=== PATIENT | male | born 1950 | race Caucasian/White ===

== ENCOUNTER 2019-07-03 11:49 | Inpatient (IN) ==
[2019-07-03] MEDS ORDERED: IOPAMIDOL 100 ML BOTTLE IV ONE (11:50)
[2019-07-03] MEDS ORDERED: 0.9 % SODIUM CHLORIDE 1,000 ML IV ONE (11:57)
[2019-07-03 12:14] LABS: POC Blood Urea Nitrogen 5 mg/dl (8-23); POC CO2 24 mmol/L (22-30); POC Calcium, Ionized 1.16 mmol/L (1.16-1.32); POC Chloride 103 mmol/L (96-108); POC Creatinine 0.5 mg/dl (0.7-1.2); POC Glucose, Random 124 mg/dL (70-105); POC Potassium 3.7 mmol/L (3.3-5.1); POC Sodium 138 mmol/L (133-145)
[2019-07-03 13:01] LABS: Basophils # (Auto) 0 K/mcL (0.0-0.3); Basophils % (Auto) 0.3 % (0.0-2.0); Eosinophils # (Auto) 0.1 K/mcL (0.0-0.7); Eosinophils % (Auto) 0.7 % (0.0-7.0); Granulocytes % (Auto) 71.6 % (38.0-78.0); Hematocrit 41.4 % (41.0-55.0); Hemoglobin 13.9 g/dL (13.5-16.5); Lymphocytes # (Auto) 1.5 K/mcL (1.5-4.8); Lymphocytes % (Auto) 21.6 % (15.5-49.0); Mean Cell Volume 91.7 fL (80.0-100.0); Mean Corpuscular HGB Conc 33.5 g/dL (31.0-36.0); Mean Platelet Volume 7.2 fL (7.4-10.4); Monocytes # (Auto) 0.4 K/mcL (0.1-0.9); Monocytes % (Auto) 5.8 % (1.0-12.0); Platelet Count 208 K/mcL (140-440); RBC 4.51 M/mcL (4.50-5.90); Red Cell Distribution Width 13.8 % (11.5-14.5)
[2019-07-03 13:24] LABS: ALT/SGPT 7 U/l (0-40); AST/SGOT 15 U/l (0-37); Albumin 4.4 gm/dL (3.2-5.2); Albumin/Globulin Ratio 1.8 (1.0-2.3); Alkaline Phosphatase 75 U/L (39-117); Bilirubin,Total 0.5 mg/dL (0.0-1.0); Blood Urea Nitrogen 6 mg/dl (8-23); Calcium 9.2 mg/dl (8.6-10.4); Carbon Dioxide 24 mmol/L (22-30); Chloride 103 mmol/L (96-108); Globulin 2.4 gm/dL (2.2-3.7); Glomerular Filtration Rate 103; Glucose 123 mg/dL (70-105)
--- NOTE | 2019-07-03 13:28 | XRay Report ---
CLINICAL INFORMATION: Abdominal pain. History of constipation TECHNIQUE: Supine and upright abdomen COMPARISON: Previous CT scans dated 06/24/2019 and 05/08/2015. Previous plain film examination dated 05/08/2015 FINDINGS: There is gas and fecal material within the colon. Fecal material is prominent, increased since previous plain film examination and probably increased since 06/24/2019. Findings are consistent with constipation. Fecal material in the distal sigmoid colon and rectum is prominent and there is probable mild pneumatosis. No evidence for mechanical small bowel obstruction. There is no pneumoperitoneum. No biliary or portal venous gas. There are multiple markers consistent with previous anterior abdominal wall surgical repair. IMPRESSION: 1. Findings consistent with constipation. Probable mild pneumatosis in the distal sigmoid colon 2. No evidence for mechanical small bowel obstruction Interpreted and Authenticated by: Refugio Tarango 07/03/19
[2019-07-03] MEDS ORDERED: hydrALAZINE 20 MG/ML VIAL IV ONE ×2 (13:32→18:38)
--- NOTE | 2019-07-03 13:33 | Cat Scan Report ---
CLINICAL INFORMATION: Altered mental status. Weakness. COMPARISON: None. TECHNIQUE: Axial noncontrast-enhanced images through the brain. Sagittally and coronally reformatted images. FINDINGS: No acute intracranial hemorrhage. There is no subdural hematoma. No subarachnoid hemorrhage. No intra-axial hematoma. There is ventriculomegaly. Lateral, third, fourth ventricles are prominent. Ventricles are enlarged to a degree greater than subarachnoid space enlargement. Etiology is not certain. Comparison with any prior examinations would be helpful. There is mild periventricular low attenuation which may be small vessel ischemic change but interstitial edema is possible No focal intra-axial attenuation abnormality. No localized mass effect. No midline shift. Brainstem and cerebellum are negative. No extra-axial come intracranial abnormality. Basilar cisterns are normal. No calvarial lesions. No fracture. No lytic lesion. Temporal bones are negative IMPRESSION: 1. Ventricular enlargement, comparison with any prior examinations available would be of benefit. 2. Mild periventricular white matter abnormality may represent small vessel ischemic change or interstitial edema 3. No focal abnormality. No intracranial hemorrhage The exam was performed using radiation dose optimization techniques including, but not limited to, automated exposure control, adjustment of the mA and/or kV according to patient size and use of iterative reconstruction technique. Interpreted and Authenticated by: Refugio Tarango 07/03/19
[2019-07-03 13:36] LABS: Appearance,Urine TURBID; Bacteria,Urine 0 /hpf (0); Bilirubin,Urine NEG (NEG); Color,Urine YELLOW; Culture Indicated,Urine NO; Glucose,Urine (UA) NEGATIVE (NEG); Ketones,Urine NEG (NEG); Leukocyte Esterase,Urine NEG /uL (NEG); Mucus,Urine MANY /hpf (0); Nitrate,Urine NEG (NEG); Protein,Urine NEG (NEG); Specific Gravity,Urine 1.015 (1.000-1.035); Urine Amorphous Crystals MANY /hpf (0); Urine Blood NEG mg/dL (<0.03); Urine RBC 0 /hpf (0-1); Urine Squamous Epithelial Cell 0 /hpf (0-4); Urine WBC 0 /hpf (0-4); Urobilinogen,Urine NEG (NEG)
[2019-07-03] MEDS ORDERED: ONDANSETRON 4 MG/2 ML VIAL IV ONE (13:40)
[2019-07-03] MEDS ORDERED: HYDROmorphone 2 MG/ML VIAL IV PRN (14:40)
[2019-07-03] MEDS ORDERED: PEG 3350/NA SULF,BICARB,CL/KCL 4,000 ML ORAL.SOL PO ONE (15:03)
--- NOTE | 2019-07-03 15:34 | Emergency Department Note ---
Nausea/Vomiting/Diarrhea HPI - General Chief complaint: Nausea/Vomiting/Diarrhea Stated complaint: Weakness/ Diarrhea Time Seen by Provider: 07/03/19 11:57 Source: patient Mode of arrival: ambulatory Limitations: no limitations - History of Present Illness HPI Narrative: 69-year-old male presents with vague nonspecific complaints other than constipation and abdominal pain. He has been seen here multiple times recently including less than 48 hours ago where he had a CT of the abdomen and pelvis that was negative other than possible constipation. States he had 3 weeks of diarrhea now the last 5 days he cannot have a bowel movement. Feels distended and like he needs to go and is miserable. No dysuria or frequency. He is confused at times. Daughter states his confusion seems to be getting worse. She does not know what is causing this. No fever or chills. He does have some nausea today but no vomiting. Last episode of diarrhea was at least 5 days ago and he is not exactly sure. - Related Data Home Medications Medication Instructions Recorded Confirmed ALPRAZolam [Xanax] 1 mg PO Q6HP PRN 05/08/15 06/24/19 Dicyclomine 20 mg PO QID 05/08/15 06/24/19 HYDROcodone/APAP 10/325MG [[place] 1 tab PO Q4H PRN 05/08/15 06/24/19 10/325Mg] Oxybutynin Chloride [Ditropan Xl] 15 mg PO HS 09/09/16 06/24/19 Previous Rx's Medication Instructions Recorded Ondansetron [Zofran ODT] 4 mg SL Q4-6HP PRN #10 tab 06/24/19 Allergies Allergy/AdvReac Type Severity Reaction Status Date / Time codeine [CODEINE] Allergy Unknown BOWEL Verified 06/23/19 18:24 PROBLEMS NSAIDS (Non-Steroidal Allergy Unknown BOWEL Verified 06/23/19 18:24 Anti-Inflamma PROBLEMS [NSAIDS (NON-STEROIDAL ANTI-INFLAMMA] Review of Systems All systems ED: reviewed and negative except as stated. Past Medical History - Past Medical History [facility] Narrative: Medical History Constipation (Acute) Sprain of right shoulder (Acute) Sprain of right elbow (Acute) Right wrist sprain (Acute) Medical history: Reports: cancer (Prostate), other (neck pain, back pain, IBS) Surgical history ED: Reports: orthopedic, other (neck, back) - Social History smoking status: Current every day smoker Alcohol use: Reports: Unknown Drug use: Reports: none Physical Exam Limitations: no limitations General appearance: alert (Alert and appropriate times but other times is confused.), other (Thin and fragile appearing) Head: atraumatic, normocephalic, normal inspection Eye: Present: normal appearance. Absent: conjunctival injection ENT: Present: normal exam, normal oropharynx, mucous membranes moist, TM's normal bilaterally, normal external ear exam Neck: Present: normal inspection, trachea midline Chest: Present: symmetric chest wall rise Respiratory: Present: normal lung sounds bilaterally. Absent: respiratory distress, rales/crackles, accessory muscle use Cardiovascular: Present: regular rate, normal heart sounds Abdominal: Present: distention (Mild distention), tenderness (Diffuse tenderness), normal bowel sounds. Absent: guarding, rebound Extremities: Present: normal inspection Neurological: Present: alert Psychiatric: Present: normal affect, normal mood Skin: Present: warm, dry, intact, normal color. Absent: rash, hives, cyanosis, diaphoresis Course Course Narrative: Patient has had issues with urinary retention since he. He was cathed once for greater than 500 mils. Over the course of the last couple hours he has over 500 and his bladder again on bladder scan and is unable to void. Paredes cath placed. @1899 I did speak with hospitalist Dr. Chase about possible admission. He would like us to get CT of abd/pelvis. Pt still unable to have BM and continued issues with urinary retention as well, as well has HTN. @ 2019 I did speak with Dr Quinteros regarding CT findings. He will consult on pt in morning but said most likely due to constipation @ 2041 Dr. Chase agrees to accept pt Vital Signs Temperature 98.1 F 07/03/19 11:51 Pulse Rate 81 07/03/19 11:51 Respiratory Rate 16 07/03/19 11:51 Blood Pressure 167/95 07/03/19 11:51 Pulse Oximetry (%) 96 07/03/19 11:51 Temperature 99.7 F H 07/03/19 15:21 Pulse Rate 91 H 07/03/19 19:46 Respiratory Rate 14 07/03/19 18:44 Blood Pressure 208/93 07/03/19 19:46 Pulse Oximetry (%) 100 07/03/19 19:46 Nausea/Vomiting/Diarrhea - Lab Data Lab results reviewed: Yes I reviewed the patient's lab results. Result diagrams: 07/03/19 12:05 07/03/19 12:05 Lab Results 07/03/19 07/03/19 07/03/19 Range/Units 12:05 12:05 12:05 WBC 7.0 (4.5-11.0) K/mcL RBC 4.51 (4.50-5.90) M/mcL Hgb 13.9 (13.5-16.5) g/dL Hct 41.4 (41.0-55.0) % POC Hct 40.0 L (41.0-55.0) % MCV 91.7 (80.0-100.0) fL MCH 30.7 (26.0-34.0) pg MCHC 33.5 (31.0-36.0) g/dL RDW 13.8 (11.5-14.5) % Plt Count 208 (140-440) K/mcL MPV 7.2 L (7.4-10.4) fL Gran % 71.6 (38.0-78.0) % Lymph % (Auto) 21.6 (15.5-49.0) % [place] % (Auto) 5.8 (1.0-12.0) % Eos % (Auto) 0.7 (0.0-7.0) % Baso % (Auto) 0.3 (0.0-2.0) % Gran # 5.0 (1.8-8.0) K/mcL Lymph # (Auto) 1.5 (1.5-4.8) K/mcL [place] # (Auto) 0.4 (0.1-0.9) K/mcL Eos # (Auto) 0.1 (0.0-0.7) K/mcL Baso # (Auto) 0 (0.0-0.3) K/mcL VBG Lactic Acid (0.5-2.0) mmol/L POC Sodium 138 (133-145) mmol/L Sodium 139 (133-145) mmol/L POC Potassium 3.7 (3.3-5.1) mmol/L Potassium 3.7 (3.3-5.1) mmol/L POC Chloride 103 (96-108) mmol/L Chloride 103 (96-108) mmol/L Carbon Dioxide 24 (22-30) mmol/L POC Total CO2 24 (22-30) mmol/L Anion Gap 12.0 (8-16) POC BUN 5 L (8-23) mg/dl BUN 6 L (8-23) mg/dl Creatinine 0.6 L (0.7-1.2) mg/dl POC Creatinine 0.5 L (0.7-1.2) mg/dl GFR Calculation 103 Glucose 123 H (70-105) mg/dL POC Glucose 124 H (70-105) mg/dL Calcium 9.2 (8.6-10.4) mg/dl POC WB Ioniz Calcium 1.16 (1.16-1.32) mmol/L Total Bilirubin 0.5 (0.0-1.0) mg/dL AST 15 (0-37) U/l ALT 7 (0-40) U/l Alkaline Phosphatase 75 (39-117) U/L Troponin T < 0.01 (0-0.03) ng/ml Total Protein 6.8 (5.9-8.4) gm/dL Albumin 4.4 (3.2-5.2) gm/dL Globulin 2.4 (2.2-3.7) gm/dL Albumin/Globulin Ratio 1.8 (1.0-2.3) Urine Color Urine Appearance Urine pH (5.0-9.0) Ur Specific [place] (1.000-1.035) Urine Protein (NEG) mg/dL Urine Glucose (UA) (NEG) mg/dL Urine Ketones (NEG) mg/dL Urine Occult Blood (<0.03) mg/dL Urine Nitrate (NEG) Urine Bilirubin (NEG) mg/dL Urine Urobilinogen (NEG) mg/dL Ur Leukocyte Esterase (NEG) /uL Urine RBC (0-1) /hpf Urine WBC (0-4) /hpf Ur Squamous Epith Cells (0-4) /hpf Amorphous Crystals (0) /hpf Urine Bacteria (0) /hpf Urine Mucus (0) /hpf Ur Culture Indicated? 07/03/19 07/03/19 Range/Units 12:45 12:55 WBC (4.5-11.0) K/mcL RBC (4.50-5.90) M/mcL Hgb (13.5-16.5) g/dL Hct (41.0-55.0) % POC Hct (41.0-55.0) % MCV (80.0-100.0) fL MCH (26.0-34.0) pg MCHC (31.0-36.0) g/dL RDW (11.5-14.5) % Plt Count (140-440) K/mcL MPV (7.4-10.4) fL Gran % (38.0-78.0) % Lymph % (Auto) (15.5-49.0) % [place] % (Auto) (1.0-12.0) % Eos % (Auto) (0.0-7.0) % Baso % (Auto) (0.0-2.0) % Gran # (1.8-8.0) K/mcL Lymph # (Auto) (1.5-4.8) K/mcL [place] # (Auto) (0.1-0.9) K/mcL Eos # (Auto) (0.0-0.7) K/mcL Baso # (Auto) (0.0-0.3) K/mcL VBG Lactic Acid 1.1 (0.5-2.0) mmol/L POC Sodium (133-145) mmol/L Sodium (133-145) mmol/L POC Potassium (3.3-5.1) mmol/L Potassium (3.3-5.1) mmol/L POC Chloride (96-108) mmol/L Chloride (96-108) mmol/L Carbon Dioxide (22-30) mmol/L POC Total CO2 (22-30) mmol/L Anion Gap (8-16) POC BUN (8-23) mg/dl BUN (8-23) mg/dl Creatinine (0.7-1.2) mg/dl POC Creatinine (0.7-1.2) mg/dl GFR Calculation Glucose (70-105) mg/dL POC Glucose (70-105) mg/dL Calcium (8.6-10.4) mg/dl POC WB Ioniz Calcium (1.16-1.32) mmol/L Total Bilirubin (0.0-1.0) mg/dL AST (0-37) U/l ALT (0-40) U/l Alkaline Phosphatase (39-117) U/L Troponin T (0-0.03) ng/ml Total Protein (5.9-8.4) gm/dL Albumin (3.2-5.2) gm/dL Globulin (2.2-3.7) gm/dL Albumin/Globulin Ratio (1.0-2.3) Urine Color Yellow Urine Appearance Turbid Urine pH 8.0 (5.0-9.0) Ur Specific [place] 1.015 (1.000-1.035) Urine Protein Neg (NEG) mg/dL Urine Glucose (UA) Negative (NEG) mg/dL Urine Ketones Neg (NEG) mg/dL Urine Occult Blood Neg (<0.03) mg/dL Urine Nitrate Neg (NEG) Urine Bilirubin Neg (NEG) mg/dL Urine Urobilinogen Neg (NEG) mg/dL Ur Leukocyte Esterase Neg (NEG) /uL Urine RBC 0 (0-1) /hpf Urine WBC 0 (0-4) /hpf Ur Squamous Epith Cells 0 (0-4) /hpf Amorphous Crystals Many A (0) /hpf Urine Bacteria 0 (0) /hpf Urine Mucus Many A (0) /hpf Ur Culture Indicated? No - Radiology Data Radiology results reviewed: Yes I reviewed the patient's radiology results. Disposition Pt seen by [facility]/PA only: Yes Clinical Impression: Abdominal pain, Constipation, Urinary retention, Hypertension, Confusion Disposition: Home, Self-Care Condition: Fair Referrals: Annalisa Larsen MD [Primary Care Provider] -
--- NOTE | 2019-07-03 20:18 | Cat Scan Report ---
CLINICAL INFORMATION: Abdominal pain. Diarrhea COMPARISON: Plain film examination dated 07/03/2019. Previous CT scan dated 06/24/2019 TECHNIQUE: Axial images were obtained through the abdomen and pelvis. Sagittally and coronally reformatted images. 80 mL Isovue 370 injected intravenously. Oral contrast material was not administered FINDINGS: Lung bases:Negative. No focal pulmonary parenchymal infiltrate or mass. There is no pleural fluid. No pericardial fluid Liver:Negative. No focal intrahepatic abnormality. Liver contour is smooth. Gallbladder, billary:No calcified gallstones. No dilated bile ducts Spleen:Negative. No splenomegaly. Normal enhancement of the splenic and portal veins Pancreas:Negative. No pancreatic mass. No peripancreatic abnormality Adrenal glands:Negative Kidneys, ureters, bladder:Negative kidneys. No solid or cystic mass. There is no hydronephrosis. There is no hydroureter. No renal or ureteral calculi. No bladder stone. Urinary bladder is distended Gastrointestinal:Large amount of fecal material throughout the colon consistent with constipation. There is prominent fecal material in the distal sigmoid colon and rectum which may indicate impaction. There is rectal wall thickening and mild pneumatosis in the rectum and distal sigmoid colon. This may represent stercoral colitis. There is no evidence for appendicitis. No mechanical small bowel obstruction. There is somewhat prominent fluid throughout the small bowel. No significant small bowel dilatation. Stomach and duodenum are negative Vascular:Calcification of the abdominal aorta. No abdominal aortic aneurysm. Lymphatic:No retroperitoneal or mesenteric adenopathy Mesentery, peritoneum:No free intraperitoneal fluid. No intra-abdominal abscess Reproductive:Prostate is not enlarged Musculoskeletal:Severe degenerative disc disease at L4-5. No lumbar compression fracture. There is mild left convex lumbar scoliosis Sacrum and pelvis are negative. Hips are negative. IMPRESSION: 1. Findings consistent with constipation. Probable distal impaction. There is mild rectal wall thickening and pneumatosis. This may be secondary to stercoral colitis 2. Mild bladder distention. No bladder calculus or detectable mass The exam was performed using radiation dose optimization techniques including, but not limited to, automated exposure control, adjustment of the mA and/or kV according to patient size and use of iterative reconstruction technique. Interpreted and Authenticated by: Refugio Tarango 07/03/19
--- NOTE | 2019-07-03 21:01 | Internal Med History&Physical ---
Medical - H&P: [facility] Patient information: Note initiated : 07/03/19 at 8:59 pm Service Date, if different from initiated Date: [] Patient: Philip Whitney 69 y/o M admitted on for Weakness/ Diarrhea. Chief Complaint: [] History of present illness: Mr. Whitney is a 69 year old M 69-year-old male presents the ED with constipation for the last 5 days. Prior to that he was dealing with diarrhea for 3 weeks after he see the flu shot. Presents with generalized abdominal pain and distension. Has nausea, no vomiting. No chest pain or shortness of breath. He takes narcotics for chronic neck pain. She is a poor historian and occasionally slow to answer questions. Per notes daughter felt he was confused at times and getting worse for the past few weeks. He lives by himself. Pressure was quite elevated in the ED as well and he was noted to have urinary retention and required a Paredes. He was given enemas and oral medications to treat his constipation but nothing has succeeded. CT abdomen pelvis was consistent with constipation probable distal impaction mild rectal wall thickening with pneumatosis possibly related to stercoral oral colitis. This was reviewed with the surgeon. Review of Systems: Pertinent positives as above. Denies headache/fever/chills/nausea/chest pain/cough/dyspnea/diarrhea. Many 10 point review of system reviewed negative Medical - H&P: PMH Medical history: Medical History Constipation (Acute) Sprain of right shoulder (Acute) Sprain of right elbow (Acute) Right wrist sprain (Acute) Anxiety Chronic pain Past surgical history: Cervical spine's fusion Prostate surgery Family history: Did not know his mother's father's medical history Social history: Smokes 1 pack/day Denies alcohol use Uses marijuana occasionally Lives by himself has dementia and is in a halfway Medical - H&P: Meds Home Medications Medication Instructions Recorded Confirmed Type ALPRAZolam [Xanax] 1 mg PO Q6HP PRN 05/08/15 06/24/19 History Dicyclomine 20 mg PO QID 05/08/15 06/24/19 History HYDROcodone/APAP 10/325MG [[place] 1 tab PO Q4H PRN 05/08/15 06/24/19 History 10/325Mg] Oxybutynin Chloride [Ditropan Xl] 15 mg PO HS 09/09/16 06/24/19 History Ondansetron [Zofran ODT] 4 mg SL Q4-6HP PRN #10 tab 06/24/19 Rx Allergies Allergy/AdvReac Type Severity Reaction Status Date / Time codeine [CODEINE] Allergy Unknown BOWEL Verified 06/23/19 18:24 PROBLEMS NSAIDS (Non-Steroidal Allergy Unknown BOWEL Verified 06/23/19 18:24 Anti-Inflamma PROBLEMS [NSAIDS (NON-STEROIDAL ANTI-INFLAMMA] Medical - H&P: Exam - Constitutional Vitals: Temp Pulse Resp BP Pulse Ox 99.7 F H 90 14 170/83 95 07/03/19 15:21 07/03/19 20:32 07/03/19 18:44 07/03/19 20:32 07/03/19 20:32 Exam: General: Alert, Awake, No acute Distress Eyes/N/T: EOMI, PEERL, DMM Head/Neck: neck supple, normocephalic atraumatic CV: Mildly tacky but regular, No murmurs, normal s1/s2 Pulm: Clear b/l, no wheezing/rhonchi/rales Abd: distended, TTP generalized, decrease BS x4 Ext: no clubbing/cyanosis/edema Neuro: A&Ox4 although slow to answer some questions , moves all extremities, CN 2-12 grossly intact, symmetrical strength b/l upper/lower, sensations intact b/l upper/lower Skin: warm/dry Medical - H&P: Reslt - Labs CBC & Chem 7: 07/03/19 12:05 07/03/19 12:05 Labs: Short CBC 07/03/19 Range/Units 12:05 WBC 7.0 (4.5-11.0) K/mcL Hgb 13.9 (13.5-16.5) g/dL Hct 41.4 (41.0-55.0) % Plt Count 208 (140-440) K/mcL BMP 07/03/19 12:05 Sodium 139 Potassium 3.7 Chloride 103 Carbon Dioxide 24 BUN 6 L Creatinine 0.6 L Glucose 123 H Calcium 9.2 Cardiac Enzymes 07/03/19 Range/Units 12:05 Troponin T < 0.01 (0-0.03) ng/ml Liver Function 07/03/19 Range/Units 12:05 Total Bilirubin 0.5 (0.0-1.0) mg/dL AST 15 (0-37) U/l ALT 7 (0-40) U/l Alkaline Phosphatase 75 (39-117) U/L Albumin 4.4 (3.2-5.2) gm/dL Urine 07/03/19 Range/Units 12:55 Urine Color Yellow Urine Appearance Turbid Urine pH 8.0 (5.0-9.0) Ur Specific [place] 1.015 (1.000-1.035) Urine Protein Neg (NEG) mg/dL Urine Glucose (UA) Negative (NEG) mg/dL - Impressions Severe constipation distal impaction some rectal wall thickening with mild pneumatosis. Medical - H&P: A/P - Narrative A/P Narrative: A: *HTN urgency: *Urinary retention: suspect will resolve with resolution of constipation *Constipation w/fecal impaction: on opioids -CT showing with mild rectal wall thickening and pneumatosis, case discussed and reviewed by surgery -suspect will resolve with resolution of constipation *Chronic pain with opioid dependence: *Anxiety: *Confusion per family: A&Ox4 on admit, but slow to answer some questions. likely 2/2 pain/above P: -attempt digital disimpaction, prn enema, then PO meds -IV fluids -Clear liquid diet -monitor BP, prn IV meds -Paredes catheter placement for now -records from dr. Larsen office - -Smoking cessation counseling -ppx: lovenox DNR
[2019-07-03] MEDS ORDERED: POTASSIUM CHLORIDE 20 MEQ TABLET PO PRN ×2 (23:19)
[2019-07-03] MEDS ORDERED: LORazepam 2 MG/ML VIAL IV PRN (23:19)
[2019-07-03] MEDS ORDERED: hydrALAZINE 20 MG/ML VIAL IV PRN (23:19)
[2019-07-03] MEDS ORDERED: IPRATROPIUM/ALBUTEROL 3 ML AMPUL.NEB NEB PRN (23:19)
[2019-07-03] MEDS ORDERED: MAGNESIUM SULFATE 2 GM/50 ML BAG IV PRN (23:19)
[2019-07-03] MEDS ORDERED: POTASSIUM CHLORIDE 40 MEQ in DEXTROSE 5% IN WATER 500 ML IV PRN (23:19)
[2019-07-03] MEDS ORDERED: PROMETHAZINE 25 MG TABLET PO PRN (23:19)
[2019-07-03] MEDS ORDERED: ACETAMINOPHEN 325 MG TABLET PO PRN (23:19)
[2019-07-03] MEDS ORDERED: MINERAL OIL 1 DOSE ENEMA PR ONE (23:19)
[2019-07-03] MEDS ORDERED: LABETALOL 5 MG/ML ML IV PRN (23:19)
[2019-07-04] MEDS: 0.9 % SODIUM CHLORIDE 10 ML SYRINGE IV SCH ×4 (00:03→21:01)
[2019-07-04] MEDS: 0.9 % SODIUM CHLORIDE 1,000 ML IV SCH ×3 (00:04→15:53)
[2019-07-04] MEDS ORDERED: LABETALOL 5 MG/ML ML IV ONE ×2 (02:21→02:42)
[2019-07-04 06:52] LABS: ALT/SGPT 5 U/l (0-40); AST/SGOT 14 U/l (0-37); Albumin 3.8 gm/dL (3.2-5.2); Albumin/Globulin Ratio 1.5 (1.0-2.3); Alkaline Phosphatase 69 U/L (39-117); Bilirubin,Direct < 0.2 mg/dL (0.0-0.3); Bilirubin,Total 0.5 mg/dL (0.0-1.0); Blood Urea Nitrogen 7 mg/dl (8-23); Calcium 9.4 mg/dl (8.6-10.4); Carbon Dioxide 23 mmol/L (22-30); Chloride 103 mmol/L (96-108); Globulin 2.5 gm/dL (2.2-3.7); Glomerular Filtration Rate 103; Glucose 99 mg/dL (70-105); Lactate Dehydrogenase 189 U/L (94-250); Phosphorous 3.7 mg/dL (2.7-4.5); Triglycerides 66 mg/dl (<150); Uric Acid 2.5 mg/dL (2.5-8.0)
--- NOTE | 2019-07-04 07:15 | Internal Med Progress Note ---
Medical - PN: Subj Patient information: Note initiated : 07/04/19 at 7:12 am Service Date, if different from initiated Date: [] Patient: Philip Whitney 69 y/o M admitted on 07/03/19 for Weakness/ Diarrhea. Chief Complaint: [] Interval history: Mr. Whitney is a 69 year old M 69-year-old male presents the ED with constipation for the last 5 days. Prior to that he was dealing with diarrhea for 3 weeks after he see the flu shot. Presents with generalized abdominal pain and distension. Has nausea, no vomiting. No chest pain or shortness of breath. He takes narcotics for chronic neck pain. She is a poor historian and occasionally slow to answer questions. Per notes daughter felt he was confused at times and getting worse for the past few weeks. He lives by himself. Pressure was quite elevated in the ED as well and he was noted to have urinary retention and required a Paredes. He was given enemas and oral medications to treat his constipation but nothing has succeeded. CT abdomen pelvis was consistent with constipation probable distal impaction mild rectal wall thickening with pneumatosis possibly related to stercoral oral colitis. This was reviewed with the surgeon. 07/04 was able to get some sleep. Refused enemas last night but did receive a enema this morning with good response. Feels less distended abdominal pain is better. Getting another enema as of speak. Will likely start oral route laxatives. Trying to obtain office notes to determine if there is any history of suspected dementia. Review of Systems: denies headache/fever/chills/nausea/vomiting/chest pain/cough/dyspnea/diarrhea. Otherwise see above. - Constitutional Vitals: Vital Signs Temp Pulse Resp BP Pulse Ox 99.3 F H 88 18 149/70 97 07/04/19 06:40 07/04/19 06:40 07/04/19 06:40 07/04/19 06:40 07/04/19 06:40 Period Temp Pulse Resp BP Sys/Junior Pulse Ox Last 24 Hr 98.1 F-99.7 F 62-102 0-23 132-213/70-141 95-100 Intake and Output 07/03/19 07/04/19 07/04/19 21:59 05:59 13:59 Intake Total 0 Output Total 1450 450 Balance -1450 -450 Weight 51.256 kg Intake & Output: Intake & Output 07/03/19 07/04/19 07/04/19 21:59 05:59 13:59 Intake Total 0 Output Total 1450 450 Balance -1450 -450 Weight 51.256 kg Intake: Oral 0 Output: Urine Catheter Amount 800 450 Void Amount 650 Other: Urine Appearance Clear Clear Straight Clear Clear Urine Color Bright Yellow Straw Straight Pale Pale Urine Odor Normal Straight Normal Stool Size Small Stool Color Brown Stool Consistency Soft # Bowel Movements 2 Exam: General: Alert, Awake, No acute Distress Eyes/N/T: EOMI, Head/Neck: neck supple, CV: RRR, No murmurs, Pulm: Clear b/l, no wheezing/rhonchi/rales Abd: less distended/firm, mild TTP generalized, decrease BS x4 but present Ext: no clubbing/cyanosis/edema Neuro: A&Ox4 although slow to answer some questions , Skin: warm/dry Medical - PN: Obj Da - Labs CBC & Chem 7: 07/03/19 12:05 07/04/19 04:35 Labs: Abnormal Lab Results 07/04/19 07/03/19 07/03/19 04:35 12:55 12:05 POC Hct 40.0 L MPV POC BUN 5 L BUN 7 L 6 L Creatinine 0.6 L 0.6 L POC Creatinine 0.5 L Glucose 123 H POC Glucose 124 H Amorphous Crystals Many A Urine Mucus Many A 07/03/19 12:05 POC Hct MPV 7.2 L POC BUN BUN Creatinine POC Creatinine Glucose POC Glucose Amorphous Crystals Urine Mucus Meds: Medications Acetaminophen (Tylenol) 650 mg PO Q6HP PRN PRN Reason: PAIN/FEVER > 101 Albuterol/Ipratropium (Duoneb) 3 ml NEB Q4HP PRN PRN Reason: Shortness Of Breath Enoxaparin Sodium (Lovenox) 40 mg SQ DAILY [facility] Hydralazine HCl (Apresoline) 0 mg IV Q2HP PRN PRN Reason: Hypertension Potassium Chloride 40 meq/ (Dextrose) 520 mls @ 130 mls/hr IV UD PRN PRN Reason: Potassium < 3 Magnesium Sulfate (Magnesium Sulfate) 2 gm in 50 mls @ 50 mls/hr IV UD PRN PRN Reason: Magnesium </= 1.6 Sodium Chloride (Sodium Chloride 0.9%) 1,000 mls @ 75 mls/hr IV .[id number] [facility] Stop: 07/05/19 01:58 Last Admin: 07/04/19 00:04 Dose: 75 mls/hr Documented by: Labetalol HCl (Trandate) 0 mg IV Q2HP PRN PRN Reason: Hypertension Lorazepam (Ativan) 0.5 - 1 mg IV Q4-6HP PRN PRN Reason: ANXIETY/SEDATION Ondansetron HCl (Zofran) 4 mg IV Q4HP PRN PRN Reason: Nausea And Vomiting Potassium Chloride (Kdur) 40 meq PO UD PRN PRN Reason: Potssium is 3-3.5 Potassium Chloride (Kdur) 40 meq PO UD PRN PRN Reason: Potassium < 3 Promethazine HCl (Phenergan) 0 mg PO Q6HP PRN PRN Reason: Nausea And Vomiting Sodium Chloride (Saline Flush) 10 ml IV Q8 [facility] Last Admin: 07/04/19 00:03 Dose: 10 ml Documented by: Medical - PN: A/P - Time Spent With Patient Total time spent is greater than 50% in coordination of care (as documented) at patient's floor/unit and/or counseling patient: - Narrative A/P Narrative: A: *HTN urgency: 2/2 below. Improved -suspect will resolve with resolution of constipation *Urinary retention: suspect will resolve with resolution of constipation *Constipation w/fecal impaction: on opioids -CT showing with mild rectal wall thickening and pneumatosis, case discussed and reviewed by surgery -refused enema's last nigth *Chronic pain with opioid dependence: *Anxiety: *Confusion per family: A&Ox4 on admit, but slow to answer some questions. likely 2/2 pain/above P: -Enema, then PO meds -IV fluids -Clear liquid diet -monitor BP, prn IV meds -Paredes catheter placement, likely d/c later today -records from dr. Larsen office - -Smoking cessation counseling -ppx: lovenox DNR Medical - PN: Qual - VTE Deep Vein Thrombosis/Pulmonary Embolism Present on Admission: No
--- NOTE | 2019-07-04 08:12 | XRay Report ---
CLINICAL INFORMATION: FOLLOW -UP OF SMALL BOWEL OBSTRUCTION COMPARISON: 07/03/2019 FINDINGS: Moderate stool present in the right, distal sigmoid colon and rectum. The stomach, colon small bowel are normal, however. There is no evidence of jacki bowel obstruction. No free air, soft tissue mass or organomegaly. No pathologic calcification. IMPRESSION: Moderate stool in the right/ distal sigmoid colon and rectum. No acute disease. No evidence of pneumatosis on today's study Interpreted and Authenticated by: Refugio Dahl 07/04/19
[2019-07-04] MEDS: ONDANSETRON 4 MG/2 ML VIAL IV PRN ×2 (08:21→17:40)
[2019-07-04] MEDS: ENOXAPARIN 40 MG/0.4 ML SYRINGE SQ SCH (10:41)
[2019-07-04] MEDS ORDERED: PROCHLORPERAZINE 10 MG TABLET PO PRN (10:52)
[2019-07-04] MEDS ORDERED: LACTULOSE 20 GM/30 ML ORAL.SOL PO PRN (10:56)
[2019-07-04] MEDS ORDERED: POLYETHYLENE GLYCOL 3350 17 GM PACKET PO PRN (10:56)
[2019-07-04] MEDS ORDERED: SENNOSIDES 1 TABLET PO PRN (10:56)
[2019-07-04] MEDS ORDERED: PEG 3350/NA SULF,BICARB,CL/KCL 4,000 ML ORAL.SOL PO ONE (10:57)
[2019-07-04] MEDS: HYDROcodone/APAP 10/325MG TABLET PO SCH ×3 (11:30→21:11)
[2019-07-04] MEDS: METHOCARBAMOL 500 MG TABLET PO PRN (11:31)
[2019-07-04] MEDS: POLYETHYLENE GLYCOL 3350 17 GM PACKET PO SCH ×4 (12:01→23:49)
[2019-07-04] MEDS: METHYLNALTREXONE BROMIDE 12 MG/0.6 ML SYRINGE SQ SCH (12:45)
[2019-07-04] MEDS: ALPRAZolam 0.5 MG TABLET PO PRN (17:34)
[2019-07-04] MEDS ORDERED: ALPRAZolam 0.5 MG TABLET PO PRN (21:00)
[2019-07-04] MEDS ORDERED: GABAPENTIN 300 MG CAPSULE PO SCH (21:00)
[2019-07-04] MEDS ORDERED: DULoxetine 30 MG CAPSULE PO SCH (21:00)
[2019-07-05] MEDS: 0.9 % SODIUM CHLORIDE 10 ML SYRINGE IV SCH (05:14)
--- NOTE | 2019-07-05 07:09 | Internal Med Progress Note ---
Medical - PN: Subj Patient information: Note initiated : 07/05/19 at 7:06 am Service Date, if different from initiated Date: [] Patient: Philip Whitney 69 y/o M admitted on 07/03/19 for Weakness/ Diarrhea. Chief Complaint: [] Interval history: Mr. Whitney is a 69 year old M 69-year-old male presents the ED with constipation for the last 5 days. Prior to that he was dealing with diarrhea for 3 weeks after he see the flu shot. Presents with generalized abdominal pain and distension. Has nausea, no vomiting. No chest pain or shortness of breath. He takes narcotics for chronic neck pain. She is a poor historian and occasionally slow to answer questions. Per notes daughter felt he was confused at times and getting worse for the past few weeks. He lives by himself. Pressure was quite elevated in the ED as well and he was noted to have urinary retention and required a Paredes. He was given enemas and oral medications to treat his constipation but nothing has succeeded. CT abdomen pelvis was consistent with constipation probable distal impaction mild rectal wall thickening with pneumatosis possibly related to stercoral oral colitis. This was reviewed with the surgeon. 07/04 was able to get some sleep. Refused enemas last night but did receive a enema this morning with good response. Feels less distended abdominal pain is better. Getting another enema as of speak. Will likely start oral route laxatives. Trying to obtain office notes to determine if there is any history of suspected dementia. Review of Systems: denies headache/fever/chills/nausea/vomiting/chest pain/cough/dyspnea/diarrhea. Otherwise see above. - Constitutional Vitals: Vital Signs Temp Pulse Resp BP Pulse Ox 99.0 F 55 L 18 164/90 98 07/05/19 06:00 07/05/19 06:00 07/05/19 06:00 07/05/19 06:00 07/05/19 06:00 Period Temp Pulse Resp BP Sys/Junior Pulse Ox Last 24 Hr 97.8 F-99.8 F 55-89 14-18 125-164/67-90 95-99 Intake and Output 07/04/19 07/05/19 07/05/19 21:59 05:59 13:59 Intake Total 1600 Output Total 250 175 Balance -250 1425 Weight 53.569 kg Intake & Output: Intake & Output 07/04/19 07/05/19 07/05/19 21:59 05:59 13:59 Intake Total 1600 Output Total 250 175 Balance -250 1425 Weight 53.569 kg Intake: IV 1000 Sodium Chloride 0.9% 1,000 ml @ 1000 75 mls/hr IV .[id number] [facility] Rx#: [id number] Oral 600 Output: Urine Catheter Amount 250 175 Other: Urine Appearance Clear Straight Sediment Urine Color Light [place] Tea Colored Straight Light [place] Stool Size Large Stool Color Brown Stool Consistency Liquid # Bowel Movements 1 Exam: General: Alert, Awake, No acute Distress Eyes/N/T: EOMI, Head/Neck: neck supple, CV: RRR, No murmurs, Pulm: Clear b/l, no wheezing/rhonchi/rales Abd: less distended/firm, mild TTP generalized, decrease BS x4 but present Ext: no clubbing/cyanosis/edema Neuro: A&Ox4 although slow to answer some questions , Skin: warm/dry Medical - PN: Obj Da - Labs CBC & Chem 7: 07/03/19 12:05 07/04/19 04:35 Labs: Abnormal Lab Results 07/04/19 07/03/19 07/03/19 04:35 12:55 12:05 POC Hct 40.0 L MPV POC BUN 5 L BUN 7 L 6 L Creatinine 0.6 L 0.6 L POC Creatinine 0.5 L Glucose 123 H POC Glucose 124 H Amorphous Crystals Many A Urine Mucus Many A 07/03/19 12:05 POC Hct MPV 7.2 L POC BUN BUN Creatinine POC Creatinine Glucose POC Glucose Amorphous Crystals Urine Mucus Meds: Medications Acetaminophen (Tylenol) 650 mg PO Q6HP PRN PRN Reason: PAIN/FEVER > 101 Hydrocodone Bitart/Acetaminophen (Argillite 10/325mg) 1.5 tab PO QID [facility]; Protocol Last Admin: 07/04/19 21:11 Dose: Not Given Documented by: Albuterol/Ipratropium (Duoneb) 3 ml NEB Q4HP PRN PRN Reason: Shortness Of Breath Alprazolam (Xanax) 1 mg PO TIDP PRN PRN Reason: Anxiety Last Admin: 07/04/19 17:34 Dose: 1 mg Documented by: Alprazolam (Xanax) 2 mg PO HSP PRN PRN Reason: Anxiety Last Admin: 07/04/19 21:07 Dose: 2 mg Documented by: Duloxetine HCl (Cymbalta) 30 mg PO DAILY [facility] Duloxetine HCl (Cymbalta) 60 mg PO [facility] Last Admin: 07/04/19 21:11 Dose: Not Given Documented by: Enoxaparin Sodium (Lovenox) 40 mg SQ DAILY [facility] Last Admin: 07/04/19 10:41 Dose: 40 mg Documented by: Gabapentin (Neurontin) 600 mg PO [facility] Last Admin: 07/04/19 21:11 Dose: Not Given Documented by: Hydralazine HCl (Apresoline) 0 mg IV Q2HP PRN PRN Reason: Hypertension Potassium Chloride 40 meq/ (Dextrose) 520 mls @ 130 mls/hr IV UD PRN PRN Reason: Potassium < 3 Magnesium Sulfate (Magnesium Sulfate) 2 gm in 50 mls @ 50 mls/hr IV UD PRN PRN Reason: Magnesium </= 1.6 Labetalol HCl (Trandate) 0 mg IV Q2HP PRN PRN Reason: Hypertension Lactulose (Cephulac) 10 gm PO DAILYP PRN PRN Reason: Constipation Lorazepam (Ativan) 0.5 - 1 mg IV Q4-6HP PRN PRN Reason: ANXIETY/SEDATION Last Admin: 07/04/19 08:20 Dose: 0.5 mg Documented by: Methocarbamol (Robaxin) 500 mg PO TIDP PRN PRN Reason: Muscle Spasm Last Admin: 07/04/19 11:31 Dose: 500 mg Documented by: Methylnaltrexone [place] (Relistor) 12 mg SQ DAILY [facility] Stop: 07/06/19 09:01 Last Admin: 07/04/19 12:45 Dose: 12 mg Documented by: Ondansetron HCl (Zofran) 4 mg IV Q4HP PRN PRN Reason: Nausea And Vomiting Last Admin: 07/04/19 17:40 Dose: 4 mg Documented by: Oxybutynin Chloride (Ditropan Xl) 15 mg PO DAILY [facility] Polyethylene Glycol (Miralax) 17 gm PO DAILYP PRN PRN Reason: Constipation Potassium Chloride (Kdur) 40 meq PO UD PRN PRN Reason: Potssium is 3-3.5 Potassium Chloride (Kdur) 40 meq PO UD PRN PRN Reason: Potassium < 3 Prochlorperazine (Compazine) 10 mg PO Q8HP PRN PRN Reason: Nausea And Vomiting Promethazine HCl (Phenergan) 0 mg PO Q6HP PRN PRN Reason: Nausea And Vomiting Senna (Senokot) 1 tab PO DAILYP PRN PRN Reason: Constipation Sodium Chloride (Saline Flush) 10 ml IV Q8 [facility] Last Admin: 07/05/19 05:14 Dose: Not Given Documented by: Medical - PN: A/P - Time Spent With Patient Total time spent is greater than 50% in coordination of care (as documented) at patient's floor/unit and/or counseling patient: - Narrative A/P Narrative: A: *HTN urgency: 2/2 below. Improved -suspect will resolve with resolution of constipation *Urinary retention: suspect will resolve with resolution of constipation *Constipation w/fecal impaction: on opioids -CT showing with mild rectal wall thickening and pneumatosis, case discussed and reviewed by surgery -refused enema's last night *h/o IBS: *Chronic neck pain w/opioid dependence: *Anxiety/Depression: *Confusion per family: A&Ox4 on admit, likely 2/2 pain/constipation/above -CT brain with ventricular enlargement, small vessel ischemic dz *Hearing Impairment: P: -bowel regimen -full liquid diet -monitor BP, prn IV meds -d/c Paredes -will decreased duloxetine back to 60mg daily, did d/w PCP -Smoking cessation counseling -ppx: lovenox DNR Medical - PN: Qual - VTE Deep Vein Thrombosis/Pulmonary Embolism Present on Admission: No
[2019-07-05] MEDS: HYDROcodone/APAP 10/325MG TABLET PO SCH ×2 (07:21→12:42)
--- NOTE | 2019-07-05 08:24 | XRay Report ---
CLINICAL INFORMATION: FOLLOW -UP OF SMALL BOWEL OBSTRUCTION COMPARISON: 07/04/2019 FINDINGS: The gas pattern is normal. There is no free air, soft tissue mass, organomegaly or pathologic calcification. IMPRESSION: Normal Interpreted and Authenticated by: Refugio Dahl 07/05/19
[2019-07-05] MEDS ORDERED: DULoxetine 30 MG CAPSULE PO SCH (09:00)
[2019-07-05] MEDS ORDERED: OXYBUTYNIN CHLORIDE 5 MG TAB.XL.24H PO SCH (09:00)
--- NOTE | 2019-07-05 10:05 | Discharge Summary ---
Medical - DS: Prov Patient information: Note initiated : 07/05/19 at 10:03 am Service Date, if different from initiated Date: [] Patient: Philip Whitney 69 y/o M admitted on 07/03/19 for Weakness/ Diarrhea. Chief Complaint: [] Date of admission: 07/03/19 23:12 Discharge date: 07/05/19 Primary care physician: Annalisa Larsen Consults: 07/03/19 20:59 Consult to Physician [CONS] Stat Comment: Consulting Provider: Shmuel Chase Reason For Exam: Physician to Consult 07/03/19 23:19 Consult to Physician [CONS] Routine Comment: fecal impaction Consulting Provider: Shanell Quinteros Reason For Exam: Physician to Consult Medical - DS: Meds - Discharge Medications Prescriptions: Docusate Sodium [Colace] 100 mg PO BID #60 cap Transmission Status: Pending to [facility] DULoxetine [Cymbalta] 60 mg PO DAILY #1 capsule Polyethylene Glycol 3350 [Miralax] 17 gm PO DAILYP PRN #30 packet PRN Reason: Constipation Transmission Status: Pending to [facility] Sennosides [Senokot] 1 tab PO DAILYP PRN #30 tab PRN Reason: Constipation Transmission Status: Pending to [facility] Active and Home Medications: Home Medications HYDROcodone/APAP 10/325MG [Robbins 10/325Mg] 1.5 tab PO QID 05/08/15 [History Confirmed 07/04/19 Last Taken Unknown] Ondansetron [Zofran ODT] 4 mg SL Q4-6HP PRN #10 tab 06/24/19 [Rx Confirmed 07/04/19 Last Taken Unknown] ALPRAZolam [Xanax] 1 mg PO TIDP PRN 07/04/19 [History Confirmed 07/04/19 Last Taken Unknown] ALPRAZolam [Xanax] 2 mg PO HSP PRN 07/04/19 [History Confirmed 07/04/19 Last Taken Unknown] DULoxetine [Cymbalta] 30 mg PO DAILY 07/04/19 [History Confirmed 07/04/19 Last Taken Unknown] DULoxetine [Cymbalta] 60 mg PO HS 07/04/19 [History Confirmed 07/04/19 Last Taken Unknown] Gabapentin [Neurontin] 600 mg PO HS 07/04/19 [History Confirmed 07/04/19 Last Taken Unknown] Methocarbamol [Robaxin] 500 mg PO TIDP PRN 07/04/19 [History Confirmed 07/04/19 Last Taken Unknown] Oxybutynin Chloride [Oxybutynin Chloride ER] 15 mg PO DAILY 07/04/19 [History Confirmed 07/04/19 Last Taken Unknown] Prochlorperazine [Compazine] 10 mg PO Q8HP PRN 07/04/19 [History Confirmed 07/04/19 Last Taken Unknown] clonazePAM [KlonoPIN] 0.5 mg PO Q8HP PRN 07/04/19 [History Confirmed 07/04/19 Last Taken Unknown] Home Medications HYDROcodone/APAP 10/325MG [Robbins 10-325Mg] 1.5 tab PO QID 05/08/15 [History Confirmed 07/04/19 Last Taken Unknown] Ondansetron [Zofran ODT] 4 mg SL Q4-6HP PRN #10 tab 06/24/19 [Rx Confirmed 07/04/19 Last Taken Unknown] ALPRAZolam [Xanax] 1 mg PO TIDP PRN 07/04/19 [History Confirmed 07/04/19 Last Taken Unknown] ALPRAZolam [Xanax] 2 mg PO HSP PRN 07/04/19 [History Confirmed 07/04/19 Last Taken Unknown] Gabapentin [Neurontin] 600 mg PO HS 07/04/19 [History Confirmed 07/04/19 Last Taken Unknown] Methocarbamol [Robaxin] 500 mg PO TIDP PRN 07/04/19 [History Confirmed 07/04/19 Last Taken Unknown] Oxybutynin Chloride [Oxybutynin Chloride ER] 15 mg PO DAILY 07/04/19 [History Confirmed 07/04/19 Last Taken Unknown] Prochlorperazine [Compazine] 10 mg PO Q8HP PRN 07/04/19 [History Confirmed 07/04/19 Last Taken Unknown] clonazePAM [KlonoPIN] 0.5 mg PO Q8HP PRN 07/04/19 [History Confirmed 07/04/19 Last Taken Unknown] DULoxetine [Cymbalta] 60 mg PO DAILY #1 capsule 07/05/19 [Rx Last Taken Unknown] Docusate Sodium [Colace] 100 mg PO BID #60 cap 07/05/19 [Rx Last Taken Unknown] Polyethylene Glycol 3350 [Miralax] 17 gm PO DAILYP PRN #30 packet 07/05/19 [Rx Last Taken Unknown] Sennosides [Senokot] 1 tab PO DAILYP PRN #30 tab 07/05/19 [Rx Last Taken Unknown] Medical - DS: Hosp Hospital Course: Mr. Whitney is a 69 year old M 69-year-old male presents the ED with constipation for the last 5 days. Prior to that he was dealing with diarrhea for 3 weeks after he see the flu shot. Presents with generalized abdominal pain and distension. Has nausea, no vomiting. No chest pain or shortness of breath. He takes narcotics for chronic neck pain. She is a poor historian and occasionally slow to answer questions. Per notes daughter felt he was confused at times and getting worse for the past few weeks. He lives by himself. Pressure was quite elevated in the ED as well and he was noted to have urinary retention and required a Paredes. He was given enemas and oral medications to treat his constipation but nothing has succeeded. CT abdomen pelvis was consistent with constipation probable distal impaction mild rectal wall thickening with pneumatosis possibly related to stercoral oral colitis. This was reviewed with the surgeon. 07/04 was able to get some sleep. Refused enemas last night but did receive a enema this morning with good response. Feels less distended abdominal pain is better. Getting another enema as of speak. Will likely start oral route laxatives. Trying to obtain office notes to determine if there is any history of suspected dementia. 07/05 Patient feeling better resting comfortably. Decompressed doing well. Stable for discharge Discharge diagnosis: Fecal impaction hypertensive urgency urinary retention Secondary discharge diagnosis: Chronic neck pain with opioid dependence anxiety depression irritable bowel hearing impairment - Time Spent with Patient Total time spent providing and/or coordinating discharge services: Greater than 30 minutes Medical - DS: Exam - Constitutional Vitals: Vital Signs Temp Pulse Resp BP BP Pulse Ox 07/05/19 07:09 99.6 F H 74 14 137/70 95 07/05/19 06:00 99.0 F 55 L 18 164/90 98 07/05/19 04:00 99.2 F H 55 L 18 139/80 98 07/05/19 02:00 98.0 F 65 18 146/74 96 07/04/19 23:56 98.2 F 69 18 137/74 96 07/04/19 22:00 98.9 F 70 18 146/75 99 07/04/19 18:21 97.8 F 64 16 142/72 97 07/04/19 17:25 98.8 F 88 18 158/84 98 07/04/19 14:00 99.1 F H 78 16 156/71 97 07/04/19 12:00 99.8 F H 89 16 145/77 95 Intake and Output 07/04/19 07/05/19 07/05/19 21:59 05:59 13:59 Intake Total 1600 Output Total 250 175 100 Balance -250 1425 -100 Intake: IV 1000 Sodium Chloride 0.9% 1,000 ml @ 1000 75 mls/hr IV .[id number] [facility] Rx#: [id number] Oral 600 Output: Urine Catheter Amount 250 175 100 Other: Urine Appearance Clear Straight Sediment Clear Urine Color Light [place] Tea Colored Straight Light [place] Light [place] Stool Size Large Stool Color Brown Stool Consistency Liquid # Bowel Movements 1 Weight 53.569 kg Medical - DS: A/P - Patient/Caregiver Discharge Instructions Activity: increase activity as tolerated Diet: High Fiber - Follow up Plan Follow up with: Annalisa Larsen MD [Primary Care Provider] - 07/07/19 3:30 pm Disposition: Home Health Service Care Plan Goals: This discharge packet is provided to you to help keep you informed about your care. We want to ensure you get everything you need when you go home. You will also be receiving a call from us in a few days to follow up with you and see how you are doing since your discharge. This gives us a chance to listen to any concerns you maybe experiencing since you were discharged or any additional needs you may have, as well as providing us feedback on your care experience. We strive to always provide excellent care and thank you for your feedback and f or choosing [facility]. Prognosis: Fair Rehab Potential: Fair Overall status at discharge: patient is back to baseline Medical - DS: Qual - VTE Deep Vein Thrombosis/Pulmonary Embolism Present on Admission: No
[2019-07-05] MEDS: ENOXAPARIN 40 MG/0.4 ML SYRINGE SQ SCH (11:21)
[2019-07-05] MEDS: METHYLNALTREXONE BROMIDE 12 MG/0.6 ML SYRINGE SQ SCH (11:22)
[2019-07-05] MEDS: METHOCARBAMOL 500 MG TABLET PO PRN (12:42)
[2019-07-05] MEDS: ALPRAZolam 0.5 MG TABLET PO PRN (12:42)
== END 2019-07-05 14:10 | disposition home health service (06) | DRG 392 ==
LOC: ED 11:49 → ICU 23:10
PROVIDERS: ADMIT Internal Medicine; ATTEND Internal Medicine